=== PATIENT | female | born 1935 | race Caucasian/White ===

== ENCOUNTER 2018-09-24 06:54 | Day surgery (SDC) | payer MEDICARE, OTHER ==
[~2018-09-24] VITALS: Ht 154.9 cm; Wt 77.1 kg
[~2018-09-24 06:54] MED LIST: ASPIRIN EC81 MG PO; BENADRYL 50MG C50 MG PO; HYDROXYZ HCL25 MG PO; MEDDOSEPAK PO; MULTIVITAMIN PO; PEPCID20 MG PO; PREDNISONE20 MG PO; SOLU-MEDROL125 MG IM; VITAMIN D3400 UNIT PO
[2018-09-24 09:25] VITALS: BP 136/71
== END 2018-09-24 09:15 | disposition home or self-care (01) ==
LOC: ENDO 06:54
PROVIDERS: ATTEND Surgery
PROC: 0DJD8ZZ Inspection of Lower Intestinal Tract, Via Natural or Artificial Opening Endoscopic (ICD-10-PCS; principal; 2018-09-24)
DX: Z12.11 Encounter for screening for malignant neoplasm of colon (principal); Q43.8 Other specified congenital malformations of intestine; K57.30 Diverticulosis of large intestine without perforation or abscess without bleeding; K64.4 Residual hemorrhoidal skin tags